=== PATIENT | male | born 2000 | race Two or more races ===

== ENCOUNTER 2022-01-18 16:28 | Emergency (ER) | payer OTHER ==
[~2022-01-18] VITALS: Ht 162.6 cm; Wt 51.0 kg
[2022-01-18 17:09] VITALS: BP 118/79
[2022-01-18] MEDS ORDERED: IBUPROFEN 600 MG TAB PO ONE (17:45)
[2022-01-18] MEDS ORDERED: NAPR500T31 PO (17:55)
== END 2022-01-18 18:04 | disposition home or self-care (01) ==
LOC: ER 16:28
DX: S90.32XA Contusion of left foot, initial encounter (principal); X58.XXXA Exposure to other specified factors, initial encounter; Y93.89 Activity, other specified; Y92.89 Other specified places as the place of occurrence of the external cause; Y99.8 Other external cause status
CPT/HCPCS: 73630